=== PATIENT | male | born 1980 ===

== ENCOUNTER 2023-09-20 10:49 | Outpatient (CLI) | payer BC, SELFPAY ==
--- NOTE | ~2023-09-20 | CT_ITS ---
Non-contrast CT scan of the Abdomen Clinical indication: Left upper quadrant pain Technique: 2.5 mm axial scans were obtained through the abdomen without intravenous or oral contrast . Dose reduction technique was used on this scan by utilizing automated exposure control and iterativ e reconstruction technique. The dose-length product (DLP) was 540.85 mGy-cm. Findings: Images through the lung bases reveal no abnormalities. Punctate bilateral nonobstructing renal stones are present. No hydronephrosis. The liver, spleen, pancreas, gallbladder, and adrenals appear normal. There is no aortic aneurysm. Visualized bowel loops are unremarkable. No ascites. 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 Impression: No abnormality seen in left upper quadrant. Punctate bilateral nonobstructing renal stones. Bilateral L5 pars interarticularis defects, with 7 mm anterolisthesis of L5 over S1. Reviewed, dictated and finalized at location . [facility] [employer] Impression: No abnormality seen in left upper quadrant. Punctate bilateral nonobstructing renal stones. Bilateral L5 pars interarticularis defects, with 7 mm anterolisthesis of L5 ove r S1.
== END 2023-09-20 10:50 ==
PROVIDERS: PCP Family Medicine; Visit Provider Family Medicine
DX: R10.12 Left upper quadrant pain (principal)
CPT/HCPCS: 74150